=== PATIENT | male | born 1965 | race African-American/Black ===

== ENCOUNTER 2016-04-23 09:51 | Emergency (ER) | payer MEDICAID ==
[~2016-04-23] VITALS: Ht 175.3 cm; Wt 108.9 kg
[~2016-04-23 09:51] MED LIST: ALLOPURINOL100 M1 ORAL; AMLODIPINE BES2.5 MG ORAL; ASPIR 8181 MG ORAL; IBUPROFEN600 MG ORAL; INDOMETHACIN50 MG PO; INDOMETHACIN75 MG ORAL; KEFLEX500 MG ORAL; LISINOPRIL5 MG ORAL; NORCO 5-325 TA1 EACH ORAL; PREDNISONE20 MG ORAL; SULFAMETHOXAZO480 ML ORAL
[2016-04-23 10:29] VITALS: BP 142/92
[2016-04-23] MEDS ORDERED: Bacitracin Oint UD TOPIC ONE (10:30)
[2016-04-23] MEDS ORDERED: Bactrim DS (160mg/800mg) tab ORAL ONE (10:30)
[2016-04-23] MEDS ORDERED: IBUPROFEN600 MG ORAL (10:35)
[2016-04-23] MEDS ORDERED: BACTRIM DS TAB1 EAC1 ORAL (10:35)
[2016-04-23] MEDS ORDERED: BACITRACIN15 GM TOPIC (10:35)
[2016-04-23 10:50] VITALS: BP 142/92
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
== END 2016-04-23 11:14 | disposition home or self-care (01) ==
LOC: EMR 10:24
DX: L03.313 Cellulitis of chest wall (principal); L02.213 Cutaneous abscess of chest wall; I10 Essential (primary) hypertension; F17.200 Nicotine dependence, unspecified, uncomplicated
CPT/HCPCS: 99284

== ENCOUNTER 2016-04-29 06:25 | Emergency (ER) | payer MEDICAID ==
[~2016-04-29] VITALS: Ht 175.3 cm; Wt 106.6 kg
[~2016-04-29 06:25] MED LIST changes: +BACITRACIN15 GM TOPIC; +BACTRIM DS TAB1 EAC1 ORAL
[2016-04-29] MEDS ORDERED: Lidocaine 1% MPF 10mg/ml 5ml IM ONE (07:15)
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
[2016-04-29] MEDS ORDERED: DOXYCYCLINE MO100 MG ORAL (07:50)
[2016-04-29 07:59] VITALS: BP 161/106
== END 2016-04-29 07:59 | disposition home or self-care (01) ==
LOC: EMR 06:55
DX: L02.213 Cutaneous abscess of chest wall (principal); L03.313 Cellulitis of chest wall; I10 Essential (primary) hypertension; E78.5 Hyperlipidemia, unspecified; Z86.718 Personal history of other venous thrombosis and embolism
CPT/HCPCS: 10060

== ENCOUNTER 2016-04-30 12:37 | Emergency (ER) | payer MEDICAID ==
[~2016-04-30] VITALS: Ht 175.3 cm; Wt 106.6 kg
[~2016-04-30 12:37] MED LIST changes: +DOXYCYCLINE MO100 MG ORAL
[2016-04-30 13:36] VITALS: BP 151/99
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
[2016-04-30] MEDS: Bacitracin Oint UD TOPIC ONE (14:46)
[2016-04-30 15:02] VITALS: BP 151/99
== END 2016-04-30 15:02 | disposition home or self-care (01) ==
LOC: EMR 14:08
DX: Z48.00 Encounter for change or removal of nonsurgical wound dressing (principal); L02.211 Cutaneous abscess of abdominal wall; I10 Essential (primary) hypertension; E78.5 Hyperlipidemia, unspecified; Z86.718 Personal history of other venous thrombosis and embolism
CPT/HCPCS: 99281

== ENCOUNTER 2016-05-16 11:52 | Emergency (ER) | payer MEDICAID ==
[~2016-05-16] VITALS: Ht 175.3 cm; Wt 108.9 kg
[2016-05-16] MEDS ORDERED: SIMVASTATIN5 MG ORAL (12:09)
[2016-05-16] MEDS ORDERED: INDOMETHACIN50 MG PO (12:50)
[2016-05-16 12:58] VITALS: BP 141/84
[2016-05-16] MEDS ORDERED: Indomethacin 25mg cap ORAL SCH (13:00)
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
--- NOTE | 2016-05-16 15:47 | Diagnostic Imaging Report ---
Indications: PAIN Technique: Three views of the left knee Comparison: None Findings: No acute fractures. No dislocations. Joint spaces are preserved. No radiopaque foreign body. Normal mineralization. Impression: No acute process
== END 2016-05-16 12:58 | disposition home or self-care (01) ==
LOC: EMR 12:20
DX: M10.9 Gout, unspecified (principal); I10 Essential (primary) hypertension
CPT/HCPCS: 99283

== ENCOUNTER 2016-08-03 04:48 | Emergency (ER) | payer MEDICAID ==
[~2016-08-03] VITALS: Ht 175.3 cm; Wt 108.9 kg
[~2016-08-03 04:48] MED LIST changes: +SIMVASTATIN5 MG ORAL
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
[2016-08-03] MEDS ORDERED: IBUPROFEN600 MG ORAL (06:13)
[2016-08-03 06:20] VITALS: BP 142/85
[2016-08-03 06:21] VITALS: BP 140/90
--- NOTE | 2016-08-03 10:09 | Diagnostic Imaging Report ---
Indication: Left clavicle pain Technique: XRAY CLAVICLE COMPL 2V LEFT Comparison: None Findings: There is no acute fracture or dislocation. There is a corticated ossicle adjacent to the lateral clavicle measuring 5 mm. Degenerative changes of the acromioclavicular joint are seen. Bone mineralization is normal. Impression: No acute osseous abnormality.
== END 2016-08-03 06:21 | disposition home or self-care (01) ==
LOC: EMR 05:41
DX: M75.32 Calcific tendinitis of left shoulder (principal); Z86.718 Personal history of other venous thrombosis and embolism
CPT/HCPCS: 99283

== ENCOUNTER 2016-08-13 10:34 | Emergency (ER) | payer MEDICAID ==
[~2016-08-13] VITALS: Ht 175.3 cm; Wt 108.9 kg
[2016-08-13] MEDS ORDERED: Indomethacin 75 MG CAPSULE.ER ORAL ONE (11:45)
[2016-08-13] MEDS ORDERED: INDOMETHACIN25 MG PO (12:29)
[2016-08-13 12:33] VITALS: BP 135/86
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
== END 2016-08-13 12:35 | disposition home or self-care (01) ==
LOC: EMR 11:26
DX: M10.9 Gout, unspecified (principal); I10 Essential (primary) hypertension; E78.5 Hyperlipidemia, unspecified; Z86.718 Personal history of other venous thrombosis and embolism
CPT/HCPCS: 29530; 29540; 99283

== ENCOUNTER 2016-08-22 08:22 | Emergency (ER) | payer MEDICAID ==
[~2016-08-22] VITALS: Ht 175.3 cm; Wt 106.6 kg
[~2016-08-22 08:22] MED LIST changes: +INDOMETHACIN25 MG PO
[2016-08-22 09:00] VITALS: BP 141/90
[2016-08-22] MEDS ORDERED: KEFLEX500 MG ORAL (09:03)
[2016-08-22] MEDS ORDERED: BACTRIM DS TAB1 EAC1 ORAL (09:03)
[2016-08-22 09:05] VITALS: BP 141/90
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
== END 2016-08-22 09:05 | disposition home or self-care (01) ==
LOC: EMR 08:58
DX: L73.9 Follicular disorder, unspecified (principal); I10 Essential (primary) hypertension
CPT/HCPCS: 99284

== ENCOUNTER 2016-08-29 06:39 | Emergency (ER) | payer MEDICAID ==
[~2016-08-29] VITALS: Ht 175.3 cm; Wt 118.8 kg
[2016-08-29 06:47] VITALS: BP 157/107
[2016-08-29] MEDS ORDERED: Ketorolac 60mg Inj IM ONE (07:15)
[2016-08-29] MEDS ORDERED: INDOCIN25 MG ORAL (07:37)
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
[2016-08-29 09:06] VITALS: BP 147/99
== END 2016-08-29 09:11 | disposition home or self-care (01) ==
LOC: EMR 06:56
DX: M25.462 Effusion, left knee (principal); M25.562 Pain in left knee; Z86.718 Personal history of other venous thrombosis and embolism; M10.9 Gout, unspecified; I10 Essential (primary) hypertension
CPT/HCPCS: 93971; 96372; 99284

== ENCOUNTER 2016-09-29 05:03 | Emergency (ER) | payer MEDICAID ==
[~2016-09-29] VITALS: Ht 175.3 cm; Wt 113.4 kg
[~2016-09-29 05:03] MED LIST changes: +INDOCIN25 MG ORAL
[2016-09-29 05:16] VITALS: BP 140/92
[2016-09-29] MEDS ORDERED: PREDNISONE20 MG ORAL (05:21)
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
[2016-09-29] MEDS ORDERED: PredniSONE 20mg tab ORAL ONE (05:30)
[2016-09-29 05:36] VITALS: BP 140/92
== END 2016-09-29 05:36 | disposition home or self-care (01) ==
LOC: EMR 05:15
DX: M10.9 Gout, unspecified (principal); I10 Essential (primary) hypertension
CPT/HCPCS: 99283

== ENCOUNTER 2016-10-08 21:40 | Emergency (ER) | payer MEDICAID ==
[~2016-10-08] VITALS: Ht 175.3 cm; Wt 111.1 kg
[2016-10-08] MEDS ORDERED: INDOMETHACIN75 MG ORAL (22:14)
[2016-10-08] MEDS ORDERED: PREDNISONE20 MG ORAL (22:14)
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
[2016-10-08 22:17] VITALS: BP 142/97
== END 2016-10-08 22:20 | disposition home or self-care (01) ==
LOC: EMR 22:02
DX: M10.9 Gout, unspecified (principal); M25.571 Pain in right ankle and joints of right foot; M25.572 Pain in left ankle and joints of left foot; I10 Essential (primary) hypertension
CPT/HCPCS: 99284

== ENCOUNTER 2016-11-18 07:22 | Emergency (ER) | payer MEDICAID ==
[~2016-11-18] VITALS: Ht 175.3 cm; Wt 108.9 kg
[2016-11-18 07:33] VITALS: BP 138/93
[2016-11-18 07:45] VITALS: BP 138/93
[2016-11-18] MEDS ORDERED: KEFLEX500 MG ORAL (07:47)
[2016-11-18] MEDS ORDERED: PREDNISONE20 MG ORAL (07:47)
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
== END 2016-11-18 08:01 | disposition home or self-care (01) ==
LOC: EMR 07:42
DX: M70.32 Other bursitis of elbow, left elbow (principal); M10.9 Gout, unspecified; Z86.718 Personal history of other venous thrombosis and embolism
CPT/HCPCS: 99283

== ENCOUNTER 2016-12-15 07:55 | Emergency (ER) | payer MEDICAID ==
[~2016-12-15] VITALS: Ht 175.3 cm; Wt 108.9 kg
[2016-12-15] MEDS ORDERED: Ketorolac 60mg Inj IM ONE (08:15)
[2016-12-15] MEDS ORDERED: INDOMETHACIN25 MG PO (08:17)
[2016-12-15 08:40] VITALS: BP 130/83
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
[2016-12-15 08:45] VITALS: BP 130/83
== END 2016-12-15 08:50 | disposition home or self-care (01) ==
LOC: EMR 08:28
DX: M10.9 Gout, unspecified (principal); Z86.718 Personal history of other venous thrombosis and embolism; I10 Essential (primary) hypertension
CPT/HCPCS: 96372; 99284

== ENCOUNTER 2017-01-26 09:33 | Emergency (ER) | payer MEDICAID ==
[~2017-01-26] VITALS: Ht 175.3 cm; Wt 108.9 kg
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
[2017-01-26] MEDS ORDERED: IBUPROFEN600 MG ORAL (10:06)
[2017-01-26 10:18] VITALS: BP 145/98
== END 2017-01-26 10:20 | disposition home or self-care (01) ==
LOC: EMR 10:09
DX: M25.562 Pain in left knee (principal)
CPT/HCPCS: 99283

== ENCOUNTER 2017-02-16 08:02 | Emergency (ER) | payer MEDICAID ==
[~2017-02-16] VITALS: Ht 175.3 cm; Wt 113.4 kg
[2017-02-16] MEDS ORDERED: INDOMETHACIN50 MG PO (08:25)
[2017-02-16] MEDS ORDERED: Ketorolac 30mg Inj IM ONE (08:30)
[2017-02-16 08:40] VITALS: BP 147/95
--- NOTE | 2017-02-16 08:53 | Emergency Room Report ---
History of Present Illness General Chief Complaint: Lower Extremity Injury Source: Patient Present Illness HPI 51-year-old male history of gout, on allopurinol, presenting with right ankle and foot pain and swelling. Patient states that this has been going on for 4 days. Patient states that he only takes allopurinol but no other medication. Denies any new trauma. denies any fever or chills. Patient states that this feels similar to his other gout attacks Allergies: Coded Allergies: No Known Allergies (Unverified , 08/03/16) Patient History Past Medical History: see triage record Past Surgical History: none Pertinent Family History: none Reviewed Nursing Documentation: PMH: Agreed, PSxH: Agreed Nursing Documentation-PMH Past Medical History: No History, Except For Hx Gastrointestinal Problems: Yes - Abdominal trauma 1999 Review of Systems All Other Systems: negative except mentioned in HPI Physical Exam Vital Signs Date Time Temp Pulse Resp B/P (MAP) Pulse Ox O2 Delivery O2 Flow Rate FiO2 02/16/17 08:08 98.6 80 18 147/95 98 Room Air Sp02 EP Interpretation: reviewed, normal General Appearance: alert, GCS 15, non-toxic, mild distress Head: normocephalic, atraumatic Eyes: bilateral eye normal inspection, bilateral eye PERRL, bilateral eye EOMI ENT: normal ENT inspection, normal pharynx, normal voice, moist mucus membranes Neck: normal inspection, full range of motion, supple Respiratory: normal inspection, lungs clear, normal breath sounds, no respiratory distress, no retraction, no wheezing, speaking full sentences, chest symmetrical Cardiovascular #1: normal inspection, regular rate, rhythm, no edema, normal capillary refill Cardiovascular #2: 2+ radial (R), 2+ radial (L) Gastrointestinal: normal inspection, non tender, soft, non-distended, no guarding Genitourinary: no CVA tenderness Musculoskeletal: other - Right ankle with erythema, swelling noted dorsum of the foot and medial malleolus, full range of motion, tender to palpation Neurologic: normal inspection, alert, oriented x3, responsive, motor strength/ tone normal, sensory intact, normal gait, speech normal Psychiatric: normal inspection, judgement/insight normal, memory normal Skin: normal inspection, normal color, no rash, warm/dry, well hydrated, normal turgor Medical Decision Making Diagnostic Impression: Primary Impression: Gout attack ER Course 51-year-old male history of gout, presenting with right ankle pain DDX: Likely gout attack, no history of any trauma to worry about fracture. Patient also has full range of motion of ankle, very low concern for septic joint Plan: Toradol IM ER course: Patient has remained stable during ED stay. Feels better with meds Disposition: Patient is to be discharged to home. Prescriptions given are indomethacin Patient is instructed to follow up with their primary care doctor within 5 days. Strict return precautions discussed with patient such as fever, chills, worsening/severe pain, nausea, vomiting, which may indicate severe illness. Patient verbalizes understanding and agrees with plan. Please note that this Emergency Department Report was dictated using Resource Interactiveinvestor relations analyst technology software, occasionally this can lead to erroneous entry secondary to interpretation by the dictation equipment Last Vital Signs Date Time Temp Pulse Resp B/P (MAP) Pulse Ox O2 Delivery O2 Flow Rate FiO2 02/16/17 08:40 98.6 18 147/95 98 Room Air 02/16/17 08:08 80 Disposition: HOME, SELF-CARE Condition: Stable Scripts Indomethacin (INDOMETHACIN) 50 Mg Capsule 50 MG PO THREE TIMES A DAY for 7 Days, #21 CAP 0 Refills Prov: Niraj Alcala M.D. 02/16/17 Referrals: NOT CHOSEN IPA/,REFERRING (PCP) Patient Instructions: Gout, [id number] Niraj Alcala M.D. Feb 16, 2017 08:53
== END 2017-02-16 08:45 | disposition home or self-care (01) ==
LOC: EMR 08:27
DX: M10.9 Gout, unspecified (principal)
CPT/HCPCS: 96372; 99284; J1885

== ENCOUNTER 2017-04-01 10:38 | Emergency (ER) | payer MEDICAID ==
[~2017-04-01] VITALS: Ht 175.3 cm; Wt 108.9 kg
[2017-04-01] MEDS ORDERED: INDOMETHACIN25 MG PO (11:53)
[2017-04-01] MEDS ORDERED: Ketorolac 30mg Inj IM ONE (12:00)
--- NOTE | 2017-04-01 12:20 | Diagnostic Imaging Report ---
Indication: Pain Technique: XRAY Ankle Compl Min 3v L Comparison: No prior films of the left ankle available. Correlation made to right ankle radiographs 02/04/2016 Findings: There is no acute fracture or ankle mortise is intact on these nonstress views. There soft tissue swelling about the lateral malleolus. Questionable small ankle joint effusion. Impression: Soft tissue swelling. No acute fracture or dislocation seen.
[2017-04-01 12:39] VITALS: BP 150/107
[2017-04-01 12:44] VITALS: BP 150/107
--- NOTE | 2017-04-05 08:04 | Emergency Room Report ---
History of Present Illness General Chief Complaint: Pain Source: Patient Present Illness HPI Patient is a 51-year-old male who presented after increased right ankle pain. Patient gradual onset of symptoms. Patient had prior history of gouty arthritis. He reports having increased pain to his right ankle. Patient had been previously on indomethacin however is not currently taking anti- inflammatory medications. Allergies: Coded Allergies: No Known Allergies (Unverified , 08/03/16) Patient History Past Medical History: see triage record Reviewed Nursing Documentation: PMH: Agreed, PSxH: Agreed Nursing Documentation-PMH Hx Gastrointestinal Problems: Yes - Abdominal trauma 1999 Review of Systems All Other Systems: negative except mentioned in HPI Physical Exam Vital Signs Date Time Temp Pulse Resp B/P (MAP) Pulse Ox O2 Delivery O2 Flow Rate FiO2 04/01/17 10:43 98.1 86 20 168/100 99 Room Air General Appearance: well appearing, no apparent distress, alert, GCS 15 Head: normocephalic, atraumatic ENT: hearing grossly normal, normal voice Neck: full range of motion, supple Respiratory: lungs clear, no respiratory distress, speaking full sentences Gastrointestinal: normal inspection, normal bowel sounds, non tender Musculoskeletal: no calf tenderness, swelling - decreased rom, no pedal edema, no erythema. Neurologic: normal gait Psychiatric: mood/affect normal Skin: no rash Medical Decision Making Diagnostic Impression: Primary Impression: Ankle pain ER Course Patient presented for ankle pain. Differential diagnosis included was not limited to sprain, fracture, dislocation, cellulitis, vascular insufficiency. X -ray imaging of the ankle was ordered. X-ray imaging of the right ankle 3 views interpreted by me showed degenerative changes without evident fracture or malalignment. Patient given prescription for Indocin throat appears to be a gout attack. There is no evidence of septic joint at this time. The patient is advised to follow up with primary care doctor in 1-2 days. Patient is advised to return if any worsening condition or if any changes in status that are concerning. This report is dictated with [employer] cloth finisher software which may occasionally lead to discrepancies related to use of this software. Last Vital Signs Date Time Temp Pulse Resp B/P (MAP) Pulse Ox O2 Delivery O2 Flow Rate FiO2 04/01/17 12:44 72 18 150/107 Room Air 04/01/17 12:39 98.1 04/01/17 10:43 99 Status: improved Disposition: HOME, SELF-CARE Condition: Stable Scripts Indomethacin (INDOMETHACIN) 25 Mg Capsule 25 MG PO DAILY, #20 CAP Prov: Pacheco Abad 04/01/17 Referrals: NOT CHOSEN IPA/MD,REFERRING (PCP) Patient Instructions: Ankle Pain Pacheco Abad Apr 05, 2017 08:04
== END 2017-04-01 12:45 | disposition home or self-care (01) ==
LOC: EMR 12:05
DX: M25.571 Pain in right ankle and joints of right foot (principal)
CPT/HCPCS: 73610; 96372; 99283; J1885

== ENCOUNTER 2017-04-06 16:04 | Emergency (ER) | payer MEDICAID ==
[~2017-04-06] VITALS: Ht 175.3 cm; Wt 108.9 kg
[2017-04-06] MEDS ORDERED: Norco 5mg/325mg tab ORAL ONE (16:30)
--- NOTE | 2017-04-06 17:38 | Emergency Room Report ---
History of Present Illness General Chief Complaint: Lower Extremity Injury Present Illness HPI 51 Y/O Male Presents to the ED C/O since to the emergency department complaining of 8/10 in severity left knee pain and swelling progressive over 4 days. Patient reports that he was evaluated last week and diagnosed with gout flare for which she has had frequent exacerbations as in the past. Patient states that he has been taking indomethacin and with no relief and worsening of his symptoms. Patient states that he now has pain with bending or straightening the leg and is unable to bear weight due to pain. Has history of DVT in 1999 and he denies calf pain, denies skin color changes denies increased temperature palpation denies fevers, chills, rashes or bruises. Denies trauma or fall. Denies numbness tingling or loss of sensation or gross motor movements of the extremities, incontinence of bowel or bladder. Denies CP, Palpitations, LOC, AMS, dizziness, Changes in Vision, Sensation, paresthesias, or a sudden severe headache. Allergies: Coded Allergies: No Known Allergies (Unverified , 08/03/16) Patient History Past Medical History: see triage record Past Surgical History: none Pertinent Family History: none Reviewed Nursing Documentation: PMH: Agreed, PSxH: Agreed Nursing Documentation-PMH Hx Gastrointestinal Problems: Yes - Abdominal trauma 1999 Review of Systems All Other Systems: negative except mentioned in HPI Physical Exam Vital Signs Date Time Temp Pulse Resp B/P (MAP) Pulse Ox O2 Delivery O2 Flow Rate FiO2 04/06/17 16:18 99.7 98 20 167/94 97 Room Air Sp02 EP Interpretation: reviewed, normal General Appearance: no apparent distress, alert, GCS 15, non-toxic Head: normocephalic, atraumatic Eyes: bilateral eye normal inspection, bilateral eye PERRL ENT: hearing grossly normal, normal voice Neck: full range of motion Respiratory: chest non-tender, lungs clear, normal breath sounds, no wheezing, speaking full sentences Cardiovascular #1: regular rate, rhythm, normal capillary refill Rectal: deferred Genitourinary: normal inspection Musculoskeletal: back normal, normal range of motion, no calf tenderness, swelling - left knee, other - pt. using crutches, tender - TTP to the anterior left knee, moderate swelling noted. increased temperature to palpation , no erythema. ROM limited due to pain. Neurologic: alert, oriented x3, responsive, motor strength/tone normal, sensory intact, speech normal, grossly normal Psychiatric: judgement/insight normal Skin: normal color, no rash, warm/dry, well hydrated Lymphatic: no adenopathy Procedures Additional Procedure Procedure Narrative Knee Arthrocentesis Procedure -Consent was obtained to perform arthrocentesis of the left knee. -The knee was draped and prepped in a sterile fashion and sterilized with Betadine solution. -6 mL of lidocaine were injected superficially as well as subcutaneously for anesthesia in which good anesthetic results were obtained. -18-gauge needle was inserted into the suprapatellar area and approximately 80 mL of synovial fluid was aspirated. -Patient tolerated this procedure well and there were no complications. -Synovial fluid was sent to lab for- synovial fluid evaluation Medical Decision Making PA Attestation Dr. cat is my supervising Physician whom patient management has been discussed with. Diagnostic Impression: Primary Impression: Gout attack Qualified Codes: M10.9 - Gout, unspecified Additional Impression: Knee pain Qualified Codes: M25.562 - Pain in left knee ER Course 51 Y/O Male Presents to the ED C/O since to the emergency department complaining of 8/10 in severity left knee pain and swelling progressive over 4 days. Patient reports that he was evaluated last week and diagnosed with gout flare for which she has had frequent exacerbations as in the past. Patient states that he has been taking indomethacin and with no relief and worsening of his symptoms. Patient states that he now has pain with bending or straightening the leg and is unable to bear weight due to pain. Has history of DVT in 1999 and he denies calf pain, denies skin color changes denies increased temperature palpation denies fevers, chills, rashes or bruises. Denies trauma or fall. Denies numbness tingling or loss of sensation or gross motor movements of the extremities, incontinence of bowel or bladder. Denies CP, Palpitations, LOC, AMS, dizziness, Changes in Vision, Sensation, paresthesias, or a sudden severe headache. Ddx considered but are not limited to cellulitis, Septic joint, pseudogout fracture, d/L, gout Vital signs: are WNL, pt. is afebrile H&PE are most consistent with recurrent gout attack - Suspicious for septic joint will do lab work up, and imaging. ORDERS: - CBC: Unremarkable -CMP: Unremarkable ,mildly elevated Cr (1.6) & BUN -Lactic acid, within normal limits -Blood Cultures: Pending --CRP: elevated mild 9.9 --ESR: Pending -Synovial fluid analysis from left knee joint: Insistent with inflammatory reaction and white blood cell count is less than 15,000 and these results have been discussed with via telephone ED INTERVENTIONS: -Shaniko PO -1.2mg Colchicine - Approximately 80 mL of straw-colored synovial fluid was aspirated from the left knee joint in a sterile fashion. Patient just finished indomethacin and will discharge with prednisone and Colchicine. -I do not identify an emergent condition at this time. With current presentation , pt. is stable for close outpatient follow up and conservative treatment. D/ w pt. to return promptly to ED with worsening or new symptoms.- Pt. (and or responsible republican) verbalizes' understanding and agreement with proposed treatment plan.proposed treatment plan. DISCHARGE: At this time pt. is stable for d/c to home. Will provide printed patient care instructions, and any necessary prescriptions. Care plan and follow up instructions have been discussed with the patient prior to discharge. Labs Test 04/06/17 17:45 04/06/17 19:11 White Blood Count 10.4 K/UL (4.8-10.8) Red Blood Count 5.83 M/UL (4.70-6.10) Hemoglobin 14.5 G/DL (14.2-18.0) Hematocrit 48.9 % (42.0-52.0) Mean Corpuscular Volume 84 FL (80-99) Mean Corpuscular Hemoglobin 24.9 PG (27.0-31.0) Mean Corpuscular Hemoglobin Concent 29.6 G/DL (32.0-36.0) Red Cell Distribution Width 12.8 % (11.6-14.8) Platelet Count 270 K/UL (150-450) Mean Platelet Volume 6.3 FL (6.5-10.1) Neutrophils (%) (Auto) 74.2 % (45.0-75.0) Lymphocytes (%) (Auto) 18.5 % (20.0-45.0) Monocytes (%) (Auto) 5.1 % (1.0-10.0) Eosinophils (%) (Auto) 0.6 % (0.0-3.0) Basophils (%) (Auto) 1.6 % (0.0-2.0) Erythrocyte Sedimentation Rate 16 MM/HR (0-15) Sodium Level 139 MMOL/L (136-145) Potassium Level 4.6 MMOL/L (3.5-5.1) Chloride Level 102 MMOL/L (98-107) Carbon Dioxide Level 26 MMOL/L (21-32) Anion Gap 11 mmol/L (5-15) Blood Urea Nitrogen 21 mg/dL (7-18) Creatinine 1.6 MG/DL (0.55-1.30) Estimat Glomerular Filtration Rate 56.0 mL/min (>60) Glucose Level 94 MG/DL (74-106) Calcium Level 9.3 MG/DL (8.5-10.1) Total Bilirubin 0.5 MG/DL (0.2-1.0) Aspartate Amino Transf (AST/SGOT) 34 U/L (15-37) Alanine Aminotransferase (ALT/SGPT) 18 U/L (12-78) Alkaline Phosphatase 56 U/L (46-116) C-Reactive Protein, Quantitative 9.9 mg/dL (0.00-0.90) Total Protein 8.2 G/DL (6.4-8.2) Albumin 3.6 G/DL (3.4-5.0) Globulin 4.6 g/dL Albumin/Globulin Ratio 0.8 (1.0-2.7) Body Fluid Source Left synovial fluid Body Fluid Volume 40 mL Body Fluid Appearance Hazy Body Fluid RBC 512 /CUMM Body Fluid Total Nucleated Cells 56370 /CUMM Body Fluid Polynuclear WBCs (%) 97 % Body Fluid Mononuclear WBCs (%) 3 % Body Fluid Mesothelial Cells (%) 0 % Other X-Ray Diagnostic Results Other X-Ray Diagnostic Results : # of Views/Limited Vs Complete: 3 View Indication: Pain EP Interpretation: Yes PA Xray: Interpretation reviewed, by supervising MD, and agrees with findings. Interpretation: no dislocation, no soft tissue swelling, no fractures Impression: No acute disease Electronically Signed by: Amna Stanton PA-C Last Vital Signs Date Time Temp Pulse Resp B/P (MAP) Pulse Ox O2 Delivery O2 Flow Rate FiO2 04/06/17 16:18 99.7 98 20 167/94 97 Room Air Disposition: HOME, SELF-CARE Condition: Stable Scripts Colchicine (Colchicine) 0.6 Mg Capsule 0.6 MG PO DAILY, #1 CAP Prov: Amna Stanton 04/06/17 Hydrocodone Bit/Acetaminophen 5-325* (NORCO 5-325*) 1 Each Tablet 1 TAB ORAL Q6H Y for For Pain, #9 TAB 0 Refills Prov: Amna Stanton 04/06/17 Prednisone* (PREDNISONE*) 20 Mg Tablet 60 MG ORAL DAILY for 5 Days, #15 TAB Prov: Amna Stanton 04/06/17 Referrals: NOT CHOSEN IPA/MD,REFERRING (PCP) Patient Instructions: Gout, [id number], Knee Pain, [id number] Additional Instructions: Take medications as directed. !!! Take colchicine and exactly 12 hours from your ER discharge. ( you received your first loading dose in the ED ) . Continue to other prescribed medications daily. Follow up with a Primary Care Provider in 3-5 days, even if your symptoms have resolved. --Please review list of primary care clinics, if you do not already have a primary care provider Return sooner to ED if new symptoms occur, or current symptoms become worse. Do not drink alcohol, drive, or operate heavy machinery while taking [ ] as this may cause drowsiness. - Please note that this Emergency Department Report was dictated using [employer] services agent technology software, occasionally this can lead to erroneous entry secondary to interpretation by the dictation equipment. Amna Stanton Apr 06, 2017 17:38
--- NOTE | 2017-04-06 18:22 | Diagnostic Imaging Report ---
Indication: Pain Technique: XRAY Knee 3v L Comparison: 04/26/2016 Findings: There is no acute fracture or dislocation. Joint spaces appear preserved. No bony erosions are noted. There may be some chondrocalcinosis. There is a small to moderate suprapatellar joint effusion. No radiopaque foreign body seen. Impression: Small to moderate suprapatellar knee joint effusion. No acute fracture or dislocation. No focal osteopenia, periostitis or bony erosion.
[2017-04-06 18:42] LABS: BASOPHILS % (AUTO) 1.6 % (0.0-2.0); EOSINOPHILS % (AUTO) 0.6 % (0.0-3.0); HEMATOCRIT 48.9 % (42.0-52.0); HEMOGLOBIN 14.5 G/DL (14.2-18.0); LYMPHOCYTES % (AUTO) 18.5 % (20.0-45.0); MEAN CORPUSCULAR VOLUME 84 FL (80-99); MONOCYTES % (AUTO) 5.1 % (1.0-10.0); NEUTROPHILS % (AUTO) 74.2 % (45.0-75.0); PLATELET COUNT 270 K/UL (150-450); RED BLOOD COUNT 5.83 M/UL (4.70-6.10); RED CELL DISTRIBUTION WIDTH 12.8 % (11.6-14.8); WHITE BLOOD COUNT 10.4 K/UL (4.8-10.8)
[2017-04-06 18:47] LABS: ANION GAP 11 mmol/L (5-15); BLOOD UREA NITROGEN 21 mg/dL (7-18); CALCIUM 9.3 MG/DL (8.5-10.1); CARBON DIOXIDE 26 MMOL/L (21-32); CHLORIDE 102 MMOL/L (98-107); CREATININE 1.6 MG/DL (0.55-1.30); POTASSIUM 4.6 MMOL/L (3.5-5.1); SODIUM 139 MMOL/L (136-145)
[2017-04-06 18:52] LABS: ALANINE AMINOTRANSFERASE 18 U/L (12-78); ALBUMIN 3.6 G/DL (3.4-5.0); ALBUMIN/GLOBULIN RATIO 0.8 (1.0-2.7); ALKALINE PHOSPHATASE 56 U/L (46-116); ASPARTATE AMINO TRANSFERASE 34 U/L (15-37); BILIRUBIN,TOTAL 0.5 MG/DL (0.2-1.0)
[2017-04-06 19:52] VITALS: BP 144/90
[2017-04-06] MEDS ORDERED: HYDROcodone/Acetamin 7.5/325 tab ORAL ONE (20:30)
[2017-04-06] MEDS ORDERED: PREDNISONE20 MG ORAL (20:45)
[2017-04-06] MEDS ORDERED: COLCHICINE0.6 M1 PO (20:45)
[2017-04-06] MEDS ORDERED: NORCO 5-325 TA1 EACH ORAL (20:45)
[2017-04-06 21:00] VITALS: BP 146/89
== END 2017-04-06 21:00 | disposition home or self-care (01) ==
LOC: EMR 16:37
DX: M10.9 Gout, unspecified (principal); M25.462 Effusion, left knee
CPT/HCPCS: 36415; 73562; 80053; 85025; 85651; 86140; 89051; 89060; 99284; J7512; Z7502

== ENCOUNTER 2017-04-23 12:57 | Emergency (ER) | payer MEDICAID ==
[~2017-04-23] VITALS: Ht 175.3 cm; Wt 113.4 kg
[~2017-04-23 12:57] MED LIST changes: +COLCHICINE0.6 M1 PO
--- NOTE | 2017-04-23 14:18 | Emergency Room Report ---
History of Present Illness General Chief Complaint: Lower Extremity Injury Source: Patient Present Illness HPI States that he has a history of recurrent gout. He is currently on allopurinol. He reports that he just finished treatment for an acute gout attack in his knee. He had improved significantly. However, he states that he was moving some furniture 3 days ago and noticed that his left ankle and left great toe became swollen and started bothering him. He states this is typical of his gout. He denies injury or trauma. He denies fever or chills. He denies nausea or vomiting. He has no other complaints. Allergies: Coded Allergies: No Known Allergies (Unverified , 08/03/16) Patient History Past Medical History: see triage record, DM, HTN, other - gout, DVT, R. eye blindness. Past Surgical History: other - Bowel surgery Social History: Denies: smoking, alcohol use, drug use Reviewed Nursing Documentation: PMH: Agreed, PSxH: Agreed Nursing Documentation-PMH Past Medical History: No History, Except For Hx Cardiac Problems: No - DVT RLE 2007 Hx Hypertension: No - right eye blindness Hx Pacemaker: No Hx Asthma: No Hx COPD: No Hx Diabetes: Yes - borderline Hx Cancer: No Hx Gastrointestinal Problems: Yes - bowel repair Hx Dialysis: No History Of Psychiatric Problem: No Hx Neurological Problems: No Hx Cerebrovascular Accident: No Hx Seizures: No Review of Systems All Other Systems: negative except mentioned in HPI Physical Exam Vital Signs Date Time Temp Pulse Resp B/P (MAP) Pulse Ox O2 Delivery O2 Flow Rate FiO2 04/23/17 13:00 98.1 97 18 155/83 95 Room Air Sp02 EP Interpretation: reviewed, normal General Appearance: no apparent distress, alert, GCS 15, non-toxic Head: normocephalic, atraumatic Eyes: bilateral eye normal inspection, bilateral eye PERRL ENT: hearing grossly normal, normal pharynx, no angioedema, normal voice Neck: full range of motion, supple/symm/no masses Respiratory: chest non-tender, lungs clear, normal breath sounds, speaking full sentences Cardiovascular #1: regular rate, rhythm, no edema Gastrointestinal: normal bowel sounds, non tender, soft, non-distended, no guarding, no rebound Rectal: deferred Musculoskeletal: back normal, normal range of motion, other - Antalgic gait. Left great toe IP joint with erythema, mild swelling and pain with range of motion. Left ankle with swelling. No erythema or warmth. Pain with range of motion of the left ankle. Neurologic: alert, oriented x3, responsive, motor strength/tone normal, sensory intact, speech normal Psychiatric: judgement/insight normal, memory normal, mood/affect normal, no suicidal/homicidal ideation Skin: no rash, warm/dry, well hydrated, other - See MSK exam Medical Decision Making Diagnostic Impression: Primary Impression: Gout attack ER Course This patient has a history of recurrent gouty arthritis. He recently had an episode and is still finishing up acute treatment. He returns with physical exam findings consistent with a recurrence of a gout attack. He did undergo ankle x-ray given the recent furniture moving. There was no acute findings identified. Go ahead and restart this patient on a course of indomethacin. I will give the patient a prescription for prednisone. However, I instructed the patient to hold on starting the prednisone to see if the indomethacin and will work. I told the patient to wait 4 or 5 days to let the indomethacin work. I told him that if he did not have good response and then he could start the prednisone. The patient had been on a prednisone taper until one week ago and so I would like to hold on the prednisone is possible. There is no evidence of infection or concern of septic joint. The patient was given close return precautions and followup instructions. Other X-Ray Diagnostic Results Other X-Ray Diagnostic Results : X-Ray ordered: CXR # of Views/Limited Vs Complete: 1 View EP Interpretation: No Interpretation: no dislocation, no fractures, other - ST swelling Impression: Other - Soft tissue swelling. Electronically Signed by: Helen Last Vital Signs Date Time Temp Pulse Resp B/P (MAP) Pulse Ox O2 Delivery O2 Flow Rate FiO2 04/23/17 13:00 98.1 97 18 155/83 95 Room Air Disposition: HOME, SELF-CARE Condition: Improved Referrals: NON PHYSICIAN (PCP) NATHANIEL MERLOS D.O. Apr 23, 2017 14:18
--- NOTE | 2017-04-23 14:25 | Diagnostic Imaging Report ---
Indication: Pain Technique: XRAY Ankle Compl Min 3v L Comparison: 04/01/2017 Findings: There is no acute fracture or ankle mortise is intact on these nonstress views. There is bimalleolar soft tissue swelling. Questionable small ankle joint effusion. There is questionable as there is lucency through the base of the fifth metatarsal seen only on oblique view which is likely artifactual. Correlation with site of point tenderness recommended. Dedicated foot radiographs could be obtained as clinically indicated. Impression: Malleolar soft tissue swelling. No acute ankle fracture. Ankle mortise intact . Question transverse lucency through the base of the fifth metatarsal seen only on oblique view, possibly artifactual. Correlate with site of tenderness. Dedicated left foot radiographs can be obtained as clinically indicated for further evaluation.
[2017-04-23] MEDS ORDERED: INDOMETHACIN50 MG PO (15:52)
[2017-04-23] MEDS ORDERED: PREDNISONE20 MG ORAL (15:52)
[2017-04-23 16:03] VITALS: BP 155/83
== END 2017-04-23 16:09 | disposition home or self-care (01) ==
LOC: EMR 13:56
DX: M10.9 Gout, unspecified (principal); Z86.718 Personal history of other venous thrombosis and embolism
CPT/HCPCS: 99283

== ENCOUNTER 2017-05-12 06:58 | Emergency (ER) | payer MEDICAID ==
[~2017-05-12] VITALS: Ht 175.3 cm; Wt 108.9 kg
[2017-05-12 08:01] VITALS: BP 150/90
--- NOTE | 2017-05-12 08:07 | Emergency Room Report ---
History of Present Illness General Chief Complaint: Lower Extremity Injury Source: Patient Present Illness HPI 51-year-old male, presenting with left knee pain for 5 days. States that he fell and twisted it. Since then it has been swollen, he been using crutches. States more pain with any movement. Has been taking Motrin which helps a lot. Allergies: Coded Allergies: No Known Allergies (Unverified , 08/03/16) Patient History Past Medical History: see triage record Past Surgical History: none Pertinent Family History: none Reviewed Nursing Documentation: PMH: Agreed, PSxH: Agreed Nursing Documentation-PMH Past Medical History: No History, Except For Hx Cardiac Problems: No - DVT RLE 2007, vasular surgery, high cholesterol Hx Hypertension: Yes - right eye blindness Hx Pacemaker: No Hx Asthma: No Hx COPD: No Hx Diabetes: Yes - borderline Hx Cancer: No Hx Gastrointestinal Problems: Yes - bowel repair Hx Dialysis: No Hx Neurological Problems: No - gouty arthritis Hx Cerebrovascular Accident: No Hx Seizures: No Review of Systems All Other Systems: negative except mentioned in HPI Physical Exam Vital Signs Date Time Temp Pulse Resp B/P (MAP) Pulse Ox O2 Delivery O2 Flow Rate FiO2 05/12/17 07:01 98.3 100 16 150/90 96 Room Air 98.2 Sp02 EP Interpretation: reviewed, normal General Appearance: normal inspection, well appearing, no apparent distress, alert, GCS 15, non-toxic Head: normocephalic, atraumatic Eyes: bilateral eye normal inspection, bilateral eye PERRL, bilateral eye EOMI ENT: normal ENT inspection, normal pharynx, normal voice, moist mucus membranes Neck: normal inspection, full range of motion, supple Respiratory: normal inspection, lungs clear, normal breath sounds, no respiratory distress, no retraction, no wheezing, speaking full sentences, chest symmetrical Cardiovascular #1: normal inspection, regular rate, rhythm, normal capillary refill Cardiovascular #2: 2+ radial (R), 2+ radial (L) Gastrointestinal: normal inspection, non tender, soft, non-distended, no guarding Musculoskeletal: other - Left knee with mild to moderate effusion, tender to palpation, decreased range of motion secondary to pain Neurologic: normal inspection, alert, oriented x3, responsive, motor strength/ tone normal, sensory intact, normal gait, speech normal Psychiatric: normal inspection, judgement/insight normal, memory normal Skin: normal inspection, normal color, no rash, warm/dry, well hydrated, normal turgor Procedures Splinting Splinting : Consent: Verbal Location: L knee Pre-Made Type: knee immobilizer Pre-Proc Neuro Vasc Exam: normal Post-Proc Neuro Vasc Exam: normal Patient Tolerated: Well Complications: None Medical Decision Making Diagnostic Impression: Primary Impression: Knee pain ER Course 51-year-old male with left knee pain DDX: Sprain/strain vs. fracture versus ligamentous injury Plan: XR ER course: XR reveals soft tissue swelling without fracture Knee immobilizer placed, patient already has crutches Disposition: Patient is to be discharged home Patient instructed to keep splint on at all times, and to follow up with orthopedic surgery in 1 week as he may need further outpatient imaging to rule out ligamentous tear Patient educated to rest, ice, and elevate extremity and to avoid vigorous activity. Strict precautions discussed with patient on when to return to the emergency room including increased redness or swelling joints, increased pain/swelling of extremity, fever or chills, which could indicate severe illness. Patient is to follow up with their primary care doctor within 5 days. Please note that this Emergency Department Report was dictated using [employer] registered nurse technology software, occasionally this can lead to erroneous entry secondary to interpretation by the dictation equipment. Xray ordered: Left knee 3 view Indication: Pain EP Interpretation: Yes Interpretation: No dislocation,+ soft tissue swelling, no fractures Impression: No acute disease Electronically signed by Niraj Alcala MD Last Vital Signs Date Time Temp Pulse Resp B/P (MAP) Pulse Ox O2 Delivery O2 Flow Rate FiO2 05/12/17 07:01 98.3 100 16 150/90 96 Room Air 98.2 Disposition: HOME, SELF-CARE Condition: Stable Referrals: NOT CHOSEN IPA/,REFERRING (PCP) Patient Instructions: Knee Pain Additional Instructions: please keep your knee immobilizer on at all times please see an orthopedic doctor in 1 week without fail as you may need further outpatient imaging Niraj Alcala M.D. May 12, 2017 08:07
--- NOTE | 2017-05-12 09:40 | Diagnostic Imaging Report ---
Indication: Reason For Exam: PAIN Technique: 3 views of the left knee Comparison: None Findings: No acute fractures. No dislocations. Joint spaces are preserved. No suprapatellar effusion. Impression: No acute process
== END 2017-05-12 08:00 | disposition home or self-care (01) ==
LOC: EMR 07:23
DX: M25.562 Pain in left knee (principal); I10 Essential (primary) hypertension; Z86.718 Personal history of other venous thrombosis and embolism
CPT/HCPCS: 99283

== ENCOUNTER 2017-05-19 10:53 | Emergency (ER) | payer MEDICAID ==
[~2017-05-19] VITALS: Ht 175.3 cm; Wt 108.9 kg
[2017-05-19] MEDS ORDERED: INDOMETHACIN50 MG PO (11:18)
[2017-05-19 11:21] VITALS: BP 178/94
[2017-05-19] MEDS ORDERED: Ketorolac 30mg Inj IM ONE (11:30)
[2017-05-19 11:31] VITALS: BP 158/86
--- NOTE | 2017-05-19 12:24 | Emergency Room Report ---
History of Present Illness General Chief Complaint: Pain Source: Patient Present Illness HPI 51-year-old male, history of gout and arthritis, presenting with left knee pain. Patient was recently seen in the emergency room last week, he said he twisted his knee, swelling went down, he was discharged with a knee immobilizer but states that he took it off because it was uncomfortable. Patient states that swelling has decreased a lot, so been able to ambulate, but now feels that his gout and arthritis are acting up and both knees. No trauma no fever no chills Allergies: Coded Allergies: No Known Allergies (Unverified , 08/03/16) Patient History Past Medical History: see triage record Past Surgical History: none Pertinent Family History: none Reviewed Nursing Documentation: PMH: Agreed, PSxH: Agreed Nursing Documentation-PMH Hx Cardiac Problems: No - DVT RLE 2007, vasular surgery, high cholesterol Hx Hypertension: Yes - right eye blindness Hx Pacemaker: No Hx Asthma: No Hx COPD: No Hx Diabetes: Yes - borderline Hx Cancer: No Hx Gastrointestinal Problems: Yes - bowel repair Hx Dialysis: No Hx Neurological Problems: No - gout, arthritis Hx Cerebrovascular Accident: No Hx Seizures: No Review of Systems All Other Systems: negative except mentioned in HPI Physical Exam Vital Signs Date Time Temp Pulse Resp B/P (MAP) Pulse Ox O2 Delivery O2 Flow Rate FiO2 05/19/17 11:00 98.5 84 18 178/94 95 Room Air 98.4 Sp02 EP Interpretation: reviewed, normal General Appearance: normal inspection, well appearing, no apparent distress, alert, GCS 15, non-toxic Head: normocephalic, atraumatic Eyes: bilateral eye normal inspection, bilateral eye PERRL, bilateral eye EOMI ENT: normal ENT inspection, normal pharynx, normal voice, moist mucus membranes Neck: normal inspection, full range of motion, supple Respiratory: normal inspection, lungs clear, normal breath sounds, no respiratory distress, no retraction, no wheezing, speaking full sentences, chest symmetrical Cardiovascular #1: normal inspection, regular rate, rhythm, no edema, normal capillary refill Cardiovascular #2: 2+ radial (R), 2+ radial (L) Gastrointestinal: normal inspection, non tender, soft, non-distended, no guarding Genitourinary: no CVA tenderness Musculoskeletal: other - Minimal effusion noted the left knee, full range of motion, not warm. Full range of motion Neurologic: normal inspection, alert, oriented x3, responsive, motor strength/ tone normal, sensory intact, normal gait, speech normal Psychiatric: normal inspection, judgement/insight normal, memory normal Skin: normal inspection, normal color, no rash, warm/dry, well hydrated, normal turgor Medical Decision Making Diagnostic Impression: Primary Impression: Knee pain Additional Impression: Gout attack ER Course 51-year-old male with knee pain, likely secondary to gout and arthritis DDX: Got attack/arthritis Plan: Pain control ER course: Patient has remained stable during ED stay. Ambulatory Given Toradol for pain and feels better Disposition: Patient is to be discharged to home. Prescriptions given are indomethacin Patient is instructed to follow up with their primary care doctor within 5 days. Please note that this Emergency Department Report was dictated using [employer] engine installer technology software, occasionally this can lead to erroneous entry secondary to interpretation by the dictation equipment Last Vital Signs Date Time Temp Pulse Resp B/P (MAP) Pulse Ox O2 Delivery O2 Flow Rate FiO2 05/19/17 11:31 98.4 89 18 158/86 95 Room Air 209.1 Disposition: HOME, SELF-CARE Condition: Improved Scripts Indomethacin (INDOMETHACIN) 50 Mg Capsule 50 MG PO BID, #30 CAP Prov: Niraj Alcala M.D. 05/19/17 Referrals: NON PHYSICIAN (PCP) Patient Instructions: Ruth [id number]-Lybj Niraj Alcala M.D. May 19, 2017 12:24
== END 2017-05-19 11:34 | disposition home or self-care (01) ==
LOC: EMR 11:15
DX: M10.9 Gout, unspecified (principal); Z86.718 Personal history of other venous thrombosis and embolism; H54.40 Blindness, one eye, unspecified eye
CPT/HCPCS: 96372; 99283; J1885

== ENCOUNTER 2017-05-27 11:44 | Emergency (ER) | payer MEDICAID ==
[~2017-05-27] VITALS: Ht 175.3 cm; Wt 113.4 kg
[2017-05-27 12:03] VITALS: BP 160/101
--- NOTE | 2017-05-27 12:25 | Emergency Room Report ---
History of Present Illness General Chief Complaint: Skin Rash/Abscess Source: Patient, Medical Record Present Illness HPI 51-year-old male presents to the emergency department c/o 05/30 in severity localized pain, swelling, and erythema of left buttock 5 days. Patient denies fevers, chills, trauma or fall. Patient denies symptoms also were on the skin. Patient denies history of immunocompromise. Denies lesions/rashes elsewhere on the body. Denies new medications or body washes or creams. Denies swelling of the lips, tongue , throat or airway. Denies wheezing, or shortness of breath. Denies recent travel, recent illness or ill contacts. denies blisters, oral lesions, or sloughing of the skin. Allergies: Coded Allergies: No Known Allergies (Unverified , 08/03/16) Patient History Past Medical History: see triage record Past Surgical History: none Pertinent Family History: none Immunizations: UTD Reviewed Nursing Documentation: PMH: Agreed, PSxH: Agreed Nursing Documentation-PMH Past Medical History: No History, Except For Hx Cardiac Problems: No - DVT RLE 2007, vasular surgery, high cholesterol Hx Hypertension: Yes - right eye blindness Hx Pacemaker: No Hx Asthma: No Hx COPD: No Hx Diabetes: Yes - borderline Hx Cancer: No Hx Gastrointestinal Problems: Yes - bowel repair Hx Dialysis: No Hx Neurological Problems: No - gout, arthritis Hx Cerebrovascular Accident: No Hx Seizures: No Review of Systems All Other Systems: negative except mentioned in HPI Physical Exam Vital Signs Date Time Temp Pulse Resp B/P (MAP) Pulse Ox O2 Delivery O2 Flow Rate FiO2 05/27/17 11:53 98.0 72 18 160/101 95 Room Air 98.1 Sp02 EP Interpretation: reviewed, normal General Appearance: no apparent distress, alert, GCS 15, non-toxic Head: normocephalic, atraumatic ENT: hearing grossly normal, no angioedema, normal voice Neck: full range of motion Respiratory: lungs clear, normal breath sounds, no wheezing, speaking full sentences Cardiovascular #1: regular rate, rhythm Musculoskeletal: back normal, gait/station normal, normal range of motion, non- tender Neurologic: alert, oriented x3, responsive, motor strength/tone normal, sensory intact, speech normal, grossly normal Psychiatric: judgement/insight normal Skin: normal color, warm/dry, well hydrated, other - 1cm left upper buttock abscess without fluctuance. mild surrounding erythema, and scab noted. Lymphatic: no adenopathy Medical Decision Making PA Attestation Dr. cat is my supervising Physician whom patient management has been discussed with. Diagnostic Impression: Primary Impression: Abscess ER Course Pt. presents to the ED c/o pain, swelling, and erythema of left buttock 5 days. Ddx considered but are not limited to cellulitis, abscess, cystic acne, necrotizing fasciitis, insect bite. Vital signs: are WNL, pt. is afebrile H&PE are most consistent with 1cm left upper buttock abscess without fluctuance. ORDERS: none required at this time, the diagnosis is clinical ED INTERVENTIONS: -I & D- not warranted at this time there is no fluctuance DISCHARGE: At this time pt. is stable for d/c to home. Will provide printed patient care instructions, and any necessary prescriptions. Care plan and follow up instructions have been discussed with the patient prior to discharge. Last Vital Signs Date Time Temp Pulse Resp B/P (MAP) Pulse Ox O2 Delivery O2 Flow Rate FiO2 05/27/17 11:53 98.0 72 18 160/101 95 Room Air 98.1 Disposition: HOME, SELF-CARE Condition: Stable Scripts Ibuprofen* (MOTRIN*) 400 Mg Tablet 400 MG ORAL THREE TIMES A DAY, #30 TAB 0 Refills Prov: Amna Stanton 05/27/17 Clindamycin Hcl (CLINDAMYCIN HCL) 300 Mg Capsule 300 MG ORAL FOUR TIMES A DAY for 7 Days, #21 CAP Prov: Amna Stanton 05/27/17 Referrals: NON PHYSICIAN (PCP) Patient Instructions: Abscess Additional Instructions: Take medications as directed. Follow up with a Primary Care Provider in 3-5 days, even if your symptoms have resolved. --Please review list of primary care clinics, if you do not already have a primary care provider Return sooner to ED if new symptoms occur, or current symptoms become worse. - Please note that this Emergency Department Report was dictated using [email or web address] cyber leader technology software, occasionally this can lead to erroneous entry secondary to interpretation by the dictation equipment. Amna Stanton May 27, 2017 12:25
[2017-05-27] MEDS ORDERED: CLINDAMYCIN HC300 MG ORAL (12:27)
[2017-05-27] MEDS ORDERED: IBUPROFEN400 MG ORAL (12:27)
[2017-05-27 12:35] VITALS: BP 160/101
== END 2017-05-27 12:35 | disposition home or self-care (01) ==
LOC: EMR 12:05
DX: L02.31 Cutaneous abscess of buttock (principal); I10 Essential (primary) hypertension; H54.40 Blindness, one eye, unspecified eye; Z86.718 Personal history of other venous thrombosis and embolism
CPT/HCPCS: 99284

== ENCOUNTER 2017-06-02 08:26 | Emergency (ER) | payer MEDICAID ==
[~2017-06-02] VITALS: Ht 175.3 cm; Wt 113.4 kg
[~2017-06-02 08:26] MED LIST changes: +CLINDAMYCIN HC300 MG ORAL; +IBUPROFEN400 MG ORAL
--- NOTE | 2017-06-02 08:57 | Emergency Room Report ---
History of Present Illness General Chief Complaint: Pain Source: Patient Present Illness HPI [id number] with multiple weeks of swelling to left knee, pain to both ankles with ambulation No recent trauma, falls Already had crutches at home so was using again Was here multiple previously for gout flareups Currently taking Indomethacin Had arthrocentesis in March 2017, 14K WBCs, likely gout Has been to PMD multiple times - no ortho or rheum referral - patient "not sure " why Allergies: Coded Allergies: No Known Allergies (Unverified , 08/03/16) Patient History Past Medical History: other - gout Past Surgical History: none Pertinent Family History: none Social History: Denies: smoking, alcohol use, drug use Immunizations: UTD Reviewed Nursing Documentation: PMH: Agreed, PSxH: Agreed Nursing Documentation-PMH Hx Cardiac Problems: No - DVT RLE 2007, vasular surgery, high cholesterol Hx Hypertension: Yes - right eye blindness Hx Pacemaker: No Hx Asthma: No Hx COPD: No Hx Diabetes: Yes - borderline Hx Cancer: No Hx Gastrointestinal Problems: Yes - bowel repair Hx Dialysis: No Hx Neurological Problems: No - gout, arthritis Hx Cerebrovascular Accident: No Hx Seizures: No Review of Systems All Other Systems: negative except mentioned in HPI Physical Exam Vital Signs Date Time Temp Pulse Resp B/P (MAP) Pulse Ox O2 Delivery O2 Flow Rate FiO2 06/02/17 08:32 67 18 199/102 67 Room Air Sp02 EP Interpretation: reviewed, normal General Appearance: normal inspection, well appearing, no apparent distress, alert, GCS 15, non-toxic, other - Ambulated into ER with crutches. Interrupted HPI to answer cell phone Head: normocephalic, atraumatic Eyes: bilateral eye PERRL, bilateral eye EOMI ENT: normal ENT inspection, hearing grossly normal, normal pharynx, no angioedema, normal voice, TMs + canals normal, uvula midline, moist mucus membranes Neck: normal inspection, full range of motion, supple, thyroid normal, no meningismus, no bony tend Respiratory: normal inspection, lungs clear, normal breath sounds, no rhonchi, no respiratory distress, no retraction, no accessory muscle use, no wheezing, speaking full sentences Cardiovascular #1: regular rate, rhythm, no edema, no JVD, normal capillary refill Gastrointestinal: normal inspection, normal bowel sounds, non tender, soft, no mass, no peritonitis, non-distended, no guarding, no hernia, no pulsatile mass Genitourinary: no CVA tenderness Musculoskeletal: normal inspection, back normal, normal range of motion, no calf tenderness, pelvis stable, Gene's Sign negative, other - Left knee: obvious knee effusion. No palpable ttp. No erythema observed. No pain with movement of knee. Left ankle: strength 5/5, no reduced ROM. Neurologic: normal inspection, alert, oriented x3, responsive, dianetic counselor III-XII nml as tested, motor strength/tone normal, cerebellar normal, normal gait, speech normal Psychiatric: normal inspection, judgement/insight normal, mood/affect normal, no suicidal/homicidal ideation, no delusions Skin: normal inspection, normal color, no rash Lymphatic: normal inspection, no adenopathy Medical Decision Making Diagnostic Impression: Primary Impression: Inflammation of joint of left knee ER Course VSS, afebrile Knee is swollen, no tenderness. No reduced ROM or pain with ROM I offered therapeutic arthrocentesis, patient refused because of pain involved. I offered to provide lidocaine/local anaesthesia, patient still refused I doubt septic joint given duration, history of gout, no fever, no pain with ROM and no pain on palpation Advised elevation, ice, JESUS wrap Advised Orthopedics referral Already on indomethacin without improvement. Will try low-dose colchicine. Was given initial dose 1.2mg in ED and short-course Rx ER course: Patient has remained stable during ED stay. Disposition: Patient is to be discharged to home. Prescriptions given are colchicine Patient is instructed to follow up with their primary care doctor within 5 days. Patient is instructed to follow up with orthopedist in 1 week Strict return precautions discussed with patient such as fever, chills, worsening/severe pain, nausea, vomiting, which may indicate severe illness. Patient verbalizes understanding and agrees with plan. Please note that this Emergency Department Report was dictated using [employer] billing representative technology software, occasionally this can lead to erroneous entry secondary to interpretation by the dictation equipment Last Vital Signs Date Time Temp Pulse Resp B/P (MAP) Pulse Ox O2 Delivery O2 Flow Rate FiO2 06/02/17 08:32 67 18 199/102 67 Room Air Status: improved Disposition: HOME, SELF-CARE Scripts Colchicine (Colchicine) 0.6 Mg Capsule 0.6 MG PO BID for 3 Days, #6 CAP Prov: TAZ MAIER M.D. 06/02/17 Referrals: NON PHYSICIAN (PCP) TAZ MAIER M.D. Jun 02, 2017 08:56
[2017-06-02] MEDS ORDERED: COLCHICINE0.6 M1 PO (09:02)
[2017-06-02 09:05] VITALS: BP 156/92
[2017-06-02 09:10] VITALS: BP 156/92
== END 2017-06-02 09:20 | disposition home or self-care (01) ==
LOC: EMR 08:51
DX: M17.12 Unilateral primary osteoarthritis, left knee (principal); M13.162 Monoarthritis, not elsewhere classified, left knee; H54.40 Blindness, one eye, unspecified eye
CPT/HCPCS: 99283

== ENCOUNTER 2017-06-22 07:05 | Emergency (ER) | payer MEDICAID ==
[~2017-06-22] VITALS: Ht 175.3 cm; Wt 111.1 kg
[2017-06-22 07:19] VITALS: BP 155/103
[2017-06-22] MEDS ORDERED: INDOMETHACIN50 MG PO (07:44)
[2017-06-22] MEDS ORDERED: Indomethacin 75 MG CAPSULE.ER ORAL ONE (07:45)
[2017-06-22 07:50] VITALS: BP 155/103
--- NOTE | 2017-06-22 08:18 | Emergency Room Report ---
History of Present Illness General Chief Complaint: Pain Source: Patient Present Illness HPI 51-year-old male presents ED for evaluation. Patient states he is having flareup of his gout. Notes pain and swelling his left middle finger and right knee for the last 2 days. States he's had history of gout in the past but states this flareup is not as bad as previous times. Pain is throbbing, 7 out of 10, nonradiating. Currently on allopurinol by his PMD. Was post be prescribed Celebrex but states his insurance will not cover. No other aggravating relieving factors. Denies any other associated symptoms Allergies: Coded Allergies: No Known Allergies (Unverified , 08/03/16) Patient History Past Medical History: DM, other - gout Past Surgical History: none, other - bowel repair Pertinent Family History: none Social History: Denies: smoking, alcohol use, drug use Immunizations: UTD Reviewed Nursing Documentation: PMH: Agreed; PSxH: Agreed Nursing Documentation-PMH Past Medical History: No History, Except For Hx Cardiac Problems: No - DVT RLE 2007, vasular surgery, high cholesterol Hx Hypertension: Yes - right eye blindness Hx Pacemaker: No Hx Asthma: No Hx COPD: No Hx Diabetes: Yes - borderline Hx Cancer: No Hx Gastrointestinal Problems: Yes - bowel repair Hx Dialysis: No Hx Neurological Problems: No - gout, arthritis Hx Cerebrovascular Accident: No Hx Seizures: No Review of Systems All Other Systems: negative except mentioned in HPI Physical Exam Vital Signs Date Time Temp Pulse Resp B/P (MAP) Pulse Ox O2 Delivery O2 Flow Rate FiO2 06/22/17 07:09 98.0 74 18 155/107 95 Room Air 98.1 Sp02 EP Interpretation: reviewed, normal General Appearance: no apparent distress, alert, GCS 15, non-toxic Head: normocephalic Eyes: bilateral eye normal inspection, bilateral eye PERRL ENT: normal ENT inspection Neck: normal inspection Respiratory: normal inspection Cardiovascular #1: normal inspection Gastrointestinal: normal inspection Rectal: deferred Genitourinary: no CVA tenderness Musculoskeletal: normal range of motion, tender - L middle finger, R knee Neurologic: alert, oriented x3, responsive, motor strength/tone normal, sensory intact, speech normal Psychiatric: judgement/insight normal, memory normal, mood/affect normal, no suicidal/homicidal ideation Skin: normal inspection Lymphatic: normal inspection Medical Decision Making Diagnostic Impression: Primary Impression: Gout attack Qualified Codes: M10.9 - Gout, unspecified ER Course Hospital Course 51-year-old M presents ED with L middle finger, R knee pain and swelling. History of gout Differential diagnoses include: Fracture, dislocation, sprain, contusion, bursitis, septic joint Clinical course Patient placed on stretcher. After initial history, physical exam reveals a middle aged male in no acute distress. There is swelling and erythema to the L middle finger, R knee. No fluctuance. Patient appears well and nontoxic. Given history of gout my suspicion for septic arthritis is low. Given indomethacin in ED with pain improved Diagnosis - gout Stable and discharged to home with prescription for indomethacin. Followup with PMD. Return to ED if symptoms recur or worsen Last Vital Signs Date Time Temp Pulse Resp B/P (MAP) Pulse Ox O2 Delivery O2 Flow Rate FiO2 06/22/17 07:50 98.1 66 18 155/103 98 Room Air 98.1 Status: improved Disposition: HOME, SELF-CARE Condition: Stable Scripts Indomethacin (INDOMETHACIN) 50 Mg Capsule 50 MG PO TID for 7 Days, CAP Prov: Enrico Llamas MD 06/22/17 Referrals: NOT CHOSEN IPA/,REFERRING (PCP) Patient Instructions: Gout, [id number] Enrico Llamas MD Jun 22, 2017 08:18
== END 2017-06-22 07:52 | disposition home or self-care (01) ==
LOC: EMR 07:27
DX: M10.9 Gout, unspecified (principal); I10 Essential (primary) hypertension; H54.40 Blindness, one eye, unspecified eye
CPT/HCPCS: 99283

== ENCOUNTER 2017-08-21 06:15 | Emergency (ER) | payer MEDICAID ==
[~2017-08-21] VITALS: Ht 175.3 cm; Wt 108.9 kg
[2017-08-21 06:31] VITALS: BP 118/74
[2017-08-21] MEDS ORDERED: INDOMETHACIN50 MG PO (06:44)
[2017-08-21] MEDS ORDERED: Ketorolac 60mg Inj IM ONE (06:45)
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
[2017-08-21 06:54] VITALS: BP 118/74
== END 2017-08-21 06:58 | disposition home or self-care (01) ==
LOC: EMR 06:45
DX: M10.9 Gout, unspecified (principal); I10 Essential (primary) hypertension
CPT/HCPCS: 96372; 99283

== ENCOUNTER 2018-01-18 11:17 | Emergency (ER) | payer MEDICAID ==
[~2018-01-18] VITALS: Ht 175.3 cm; Wt 106.6 kg
[~2018-01-18 11:17] MED LIST changes: +AMLODIPINE BESYL5 MG ORAL; +ASPIRIN81 MG ORAL; +CEPHALEXIN500 MG ORAL; +LISINOPRIL10 MG ORAL
[2018-01-18 12:00] VITALS: BP 149/96
[2018-01-18] MEDS ORDERED: HYDROCORTISONE30 G2 TP (12:13)
[2018-01-18] MEDS ORDERED: BACITRACIN-P28.35 GM TP (12:13)
[2018-01-18] MEDS ORDERED: PERMETHRIN60 GM TOPIC (12:13)
[2018-01-18] MEDS ORDERED: CLARITIN10 M2 ORAL (12:13)
[2018-01-18] MEDS ORDERED: PREDNISONE20 MG ORAL (12:13)
[2018-01-18] MEDS ORDERED: BENADRYL25 MG ORAL (12:13)
[2018-01-18] MEDS ORDERED: HydrOXYzine tab 25mg tab ORAL ONE (12:15)
--- NOTE | 2018-01-18 12:15 | Emergency Room Report ---
History of Present Illness General Chief Complaint: Skin Rash/Abscess Source: Patient Present Illness HPI 52-year-old male patient presents ER complaining of rash all over his body for the past few days. Reports rash is intensely pruritic. Denies pain or burning sensation. Denies bleeding. Reports has not taken any medication for relief of symptoms. Reports close contacts at home with similar symptoms. Reports lives in apartment with his mother. 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 Denies fever, chest pain, shortness of breath, vomiting, diarrhea. Denies open wounds or bleeding. Denies history of diabetes. denies recent travel or camping. Denies new soaps, shampoos, detergents. Allergies: Coded Allergies: No Known Allergies (Unverified , 08/03/16) Patient History Past Medical History: see triage record Reviewed Nursing Documentation: PMH: Agreed; PSxH: Agreed Nursing Documentation-PMH Past Medical History: No History, Except For Hx Cardiac Problems: No - DVT RLE 2007, vasular surgery, high cholesterol Hx Hypertension: Yes - right eye blindness Hx Pacemaker: No Hx Asthma: No Hx COPD: No Hx Diabetes: Yes - borderline Hx Cancer: No Hx Gastrointestinal Problems: Yes - bowel repair Hx Dialysis: No Hx Neurological Problems: No - gout, arthritis Hx Cerebrovascular Accident: No Hx Seizures: No Review of Systems All Other Systems: negative except mentioned in HPI Physical Exam Vital Signs Date Time Temp Pulse Resp B/P (MAP) Pulse Ox O2 Delivery O2 Flow Rate FiO2 01/18/18 11:32 98.4 74 23 149/96 93 Room Air Sp02 EP Interpretation: reviewed, normal General Appearance: well appearing, no apparent distress, alert, GCS 15, non- toxic Head: normocephalic, atraumatic Eyes: bilateral eye normal inspection, bilateral eye PERRL ENT: hearing grossly normal, normal pharynx, no angioedema, normal voice, uvula midline, moist mucus membranes Neck: full range of motion Respiratory: lungs clear, normal breath sounds, no rhonchi, no respiratory distress, no accessory muscle use, no wheezing, speaking full sentences Cardiovascular #1: regular rate, rhythm, no edema Musculoskeletal: back normal, digits/nails normal, gait/station normal, normal range of motion, non-tender Neurologic: alert, oriented x3, responsive, motor strength/tone normal, sensory intact Psychiatric: mood/affect normal Skin: rash - erythematous micropapular rash on bilateral upper extremities and back and buttock, excoriations noted, no fluctuance, no surrounding erythema or edema, no linear burrows, spares palms and sole, red streaking, no central clearing, no target sign, no crusting or weeping lesions Medical Decision Making PA Attestation Dr. Cortes is my supervising Physician whom patient management has been discussed with. Diagnostic Impression: Primary Impression: Rash and other nonspecific skin eruption ER Course Pt. presents to the ED c/o rash. Ddx considered but are not limited to atopic dermatitis, scabies, shingles, hives, urticaria, angiodema, allergic reaction, impetigo. Vital signs: are WNL, pt. is afebrile Ordered medication. ER COURSE PE shows maculopapular rash on body, no signs of cellulitis that require oral abx. Do to excoriations will provide with topical abx. Provided patient with hydroxyzine and benadryl for itiching symptoms. Will cover for possible scabies. Alert contacts of need for cleaning. advised patient on use of permethrin. Followup with dermatology. ER precautions given. Wash all clothes and bedding in high heat. Alert close contacts for need for evaluation and treatment. DISCHARGE: -Rx given for Benadryl for pruritis. SE drowsiness, do not take prior to drinking, driving, operating heavy machinery. -Rx given for Permethrin cream. -Rx given for Hydrocortisone. Do not apply to face or skin creases. -Rx given for Bacitracin -Rx provided for hydrocortisone cream -Rx provided for prednisone, first dose given in ER, beging taking tomorrow. for itching symptoms. At this time pt. is stable for d/c to home. Patient resting comfortably, in no acute distress, nontoxic appearinge. Will provide printed patient care instructions, and any necessary prescriptions. Care plan and follow up instructions have been discussed with the patient prior to discharge. Patient provided with list of healthcare clinics to establish primary care physician. Patient instructed to follow-up with primary care provider in 3 - 5 days. Patient questions asked and answered. ER precautions given. Patient instructed to return to ER immediately for any new or worsening of symptoms including but not limited to increasing SOB, persistent fever. - Please note that this Emergency Department Report was dictated using [employer] pound net or trap technology software, occasionally this can lead to erroneous entry secondary to interpretation by the dictation equipment. Last Vital Signs Date Time Temp Pulse Resp B/P (MAP) Pulse Ox O2 Delivery O2 Flow Rate FiO2 01/18/18 11:32 98.4 74 23 149/96 93 Room Air Disposition: HOME, SELF-CARE Condition: Stable Scripts Diphenhydramine Hcl* (BENADRYL*) 25 Mg Capsule 25 MG ORAL Q6H PRN for Itching, #30 CAP Prov: Remy Tomlinson 01/18/18 Loratadine (CLARITIN) 10 Mg Capsule 10 MG ORAL DAILY, #30 CAP Prov: Remy Tomlinson 01/18/18 Hydrocortisone (Hydrocortisone Cream 2.5%) Y Cream.appl 1 APPLIC TP BID, #28 GM Prov: Remy Tomlinson 01/18/18 Bacitracin/Polymyxin B Sulfate (BACITRACIN-POLYMYXIN OINTMENT) 28.35 Gm Oint...g. 1 APPLIC TP BID, #28 GM Prov: Remy Tomlinson 01/18/18 Prednisone* (PREDNISONE*) 20 Mg Tablet 40 MG ORAL DAILY for 3 Days, #6 TAB Prov: Remy Tomlinson 01/18/18 Permethrin* (ELIMITE*) 60 Gm Cream..g. 1 APPLIC TOPIC ONCE, #60 GM 0 Refills Apply cream from head to toe; leave on for 8-14 hours before washing off with water; may reapply in 1 week if live mites appear. Prov: Remy Tomlinson 01/18/18 Referrals: NOT CHOSEN IPA/MD,REFERRING (PCP) Patient Instructions: Acne, [id number], Bedbugs, [id number], Insect Bite, [id number], Rash, Scabies, Pediatric Additional Instructions: Followup with primary care provider in 3 -5 days. Request referral to dermatology as needed. Do not scratch or itch. Apply cool compresses to affected area. Wash all clothes and bedding. Alert close contacts for need for treatment. Take medications as directed. Do not apply topical steroid medication to face or skin creases. SE Benadryl drowsiness, do not take prior to drinking, driving, operating heavy machinery. Take Claritin during the day and Benadryl at night for itching symptoms. Patient questions asked and answered. ER precautions given, patient instructed to return to ER immediately for any new or worsening of symptoms. [facility] Remy Tomlinson Jan 18, 2018 12:15
[2018-01-18 12:24] VITALS: BP 149/96
== END 2018-01-18 12:24 | disposition home or self-care (01) ==
LOC: EMR 11:55
DX: R21 Rash and other nonspecific skin eruption (principal); I10 Essential (primary) hypertension; H54.61 Unqualified visual loss, right eye, normal vision left eye; M10.9 Gout, unspecified
CPT/HCPCS: 99283; J7512